=== PATIENT | male | born 1980 | race African-American/Black ===

== ENCOUNTER 2018-06-17 10:30 | Outpatient (RCR) | payer OTHER | END 2018-07-08 | disposition home or self-care (01) | LOC: PTY 10:30 | DX: Z96.612 Presence of left artificial shoulder joint (principal) ==

== ENCOUNTER 2018-07-13 10:30 | Outpatient (RCR) | payer OTHER | END 2018-08-07 | disposition home or self-care (01) | LOC: PTY 10:30 | DX: Z47.1 Aftercare following joint replacement surgery (principal); Z96.612 Presence of left artificial shoulder joint; M19.90 Unspecified osteoarthritis, unspecified site ==

== ENCOUNTER 2018-08-16 10:00 | Outpatient (RCR) | payer OTHER | END 2018-09-07 | disposition home or self-care (01) | LOC: PTY 10:00 | DX: Z47.1 Aftercare following joint replacement surgery (principal); Z96.612 Presence of left artificial shoulder joint; M19.90 Unspecified osteoarthritis, unspecified site ==

== ENCOUNTER 2018-09-21 10:50 | Outpatient (RCR) | payer OTHER | END 2018-10-07 | disposition home or self-care (01) | LOC: PTY 10:50 | DX: Z47.1 Aftercare following joint replacement surgery (principal); Z96.612 Presence of left artificial shoulder joint ==